=== PATIENT | male | born 1975 | race Two or more races ===

== ENCOUNTER 2023-11-03 20:34 | Emergency (ER) | payer OTHER ==
[~2023-11-03] VITALS: Ht 167.6 cm; Wt 104.3 kg
[2023-11-04] MEDS ORDERED: DEXAMETHASONE SODIUM PHOSPHATE 4 MG/ML VIAL IM STA (00:03)
[2023-11-04] MEDS ORDERED: DEXAMETHASONE4 MG PO (00:12)
[2023-11-04] MEDS ORDERED: ZYRTEC10 MG PO (00:12)
[2023-11-04] MEDS ORDERED: MUCINEX DM ER1 EACH PO (00:12)
[2023-11-04] MEDS ORDERED: AMOX-CLAV 875-1 EAC1 PO (00:12)
[2023-11-04] MEDS ORDERED: FLONASE16 GM NASAL (00:12)
== END 2023-11-04 00:35 | disposition home or self-care (01) ==
LOC: ER 20:35
DX: J32.9 Chronic sinusitis, unspecified (principal)